=== PATIENT | female | born 1985 | race African-American/Black ===

== ENCOUNTER 2017-05-31 15:23 | Emergency (ER) | payer MEDICAID ==
[~2017-05-31] VITALS: Ht 172.7 cm; Wt 67.0 kg
[2017-05-31 15:30] VITALS: BP 126/84
[2017-05-31] MEDS ORDERED: TOPI50TA PO (15:32)
== END 2017-05-31 16:35 | disposition home or self-care (01) ==
LOC: ER 15:37
DX: R56.9 Unspecified convulsions (principal); Z91.19 Patient's noncompliance with other medical treatment and regimen
CPT/HCPCS: 99283